=== PATIENT | male | born 1940 | race Caucasian/White ===

== ENCOUNTER 2017-09-18 08:26 | Emergency (ER) | payer OTHER ==
[~2017-09-18] VITALS: Ht 172.7 cm; Wt 70.5 kg
[2017-09-18 08:34] VITALS: BP 116/65; PULSE 87; RESP 16; TEMP 98.2; O2SAT 98
[2017-09-18] MEDS ORDERED: LIDOCAINE 1%/EPINEPHrine 1:100,000 SOLN 20 ML VIAL INFIL ONE (08:45)
[2017-09-18] MEDS ORDERED: WARF-58 PO (08:46)
[2017-09-18] MEDS ORDERED: AMLO10TA2 PO (08:46)
[2017-09-18] MEDS ORDERED: OMEP20TA93 PO (08:46)
[2017-09-18] MEDS ORDERED: CLINPOW P-ARTICULR (08:46)
[2017-09-18] MEDS ORDERED: LISI10TA3 PO (08:46)
--- NOTE | 2017-09-18 09:25 | PD ---
HPI Chief Complaint: Skin Problem Time Seen by Provider: 08:38 Travel History International Travel<30 days: No Contact w/Intl Traveler<30days: No Traveled to known affect area: No History of Present Illness HPI This 77-year-old male is complaining of a swollen area on his right cheek. This is been present for several days. He went to urgent care and was put on clindamycin. The area is swollen and tender. He has history of a prosthetic aortic valve and is on Coumadin. He is not aware of fevers. Believes it started as an ingrown hair. PFSH Past Medical History Hx Anticoagulant Therapy: Yes (COUMADIN) Cardiac Catheterization: Yes Coronary Artery Disease: Yes GERD: Yes Hypertension: Yes Influenza Vaccination: Yes Past Surgical History Valve Replacement: Yes Social History Alcohol Use: No Tobacco Use: No Substance Use: No Allergies-Medications (Allergen,Severity, Reaction): Coded Allergies: No Known Allergies (Verified Allergy, Unknown, 09/18/17) Reported Meds & Prescriptions Reported Meds & Active Scripts Active Reported Omeprazole 20 Mg Tab 20 Mg PO DAILY Lisinopril 10 Mg Tab 10 Mg PO DAILY Amlodipine (Amlodipine Besylate) 10 Mg Tab 10 Mg PO DAILY Warfarin 3 Mg Tab 3 Mg PO DAILY Clindamycin HCl (Bulk) 1 Powd 300 Mg P-ARTICULR BID Review of Systems General / Constitutional: No: Fever, Chills Eyes: No: Diploplia HENT: No: Headaches, Vertigo Cardiovascular: No: Chest Pain or Discomfort Gastrointestinal: No: Nausea, Vomiting Genitourinary: No: Urgency Musculoskeletal: No: Myalgias Skin: Positive Rash, Positive Lumps Psychiatric: No: Anxiety Endocrine: No: Cold Intolerance Hematologic/Lymphatic: Positive: Easy Bruising Physical Exam Narrative GENERAL: Well-developed male SKIN: Focused skin assessment warm/dry. HEAD: Atraumatic. Normocephalic. EYES: Pupils equal and round. No scleral icterus. No injection or drainage. Swelling and tenderness of the right cheek. It is fairly tense, approximately 1 x 2 cm in size ENT: No nasal bleeding or discharge. Mucous membranes pink and moist. NECK: Trachea midline. No JVD. CARDIOVASCULAR: Regular rate and rhythm. No murmur appreciated. RESPIRATORY: No accessory muscle use. Clear to auscultation. Breath sounds equal bilaterally. GASTROINTESTINAL: Abdomen soft, non-tender, nondistended. Hepatic and splenic margins not palpable. MUSCULOSKELETAL: No obvious deformities. No clubbing. No cyanosis. No edema. NEUROLOGICAL: Awake and alert. No obvious cranial nerve deficits. Motor grossly within normal limits. Normal speech. PSYCHIATRIC: Appropriate mood and affect; insight and judgment normal. Data Data Last Documented VS Vital Signs Date Time Temp Pulse Resp B/P (MAP) Pulse Ox O2 Delivery O2 Flow Rate FiO2 09/18/17 08:34 98.2 87 16 116/65 (82) 98 Orders Orders Lidocai-Epi 1%-1:100,000 Inj (Xylocaine- (09/18/17 08:45) MDM Medical Decision Making Medical Screen Exam Complete: Yes Emergency Medical Condition: Yes Medical Record Reviewed: Yes Differential Diagnosis Differential includes abscess, sebaceous cyst, Narrative Course History is consistent with abscess. Verbal consent was obtained and the area was anesthetized. An incision was made over the area of tenseness and purulent material was obtained. Much as possible was expressed. Loculations are broken up with forceps. Approximately 6 cm of quarter inch packing were inserted. Patient tolerated the procedure well Procedures Procedure Narrative After verbal consent the area was anesthetized with 1% lidocaine with adrenaline. An incision was made and pus was expressed. Loculations were broken up with a forceps. 6 cm of quarter inch packing was inserted patient tolerated the procedure well Diagnosis Primary Impression: Abscess of cheek Additional Instructions: Continue Cleocin and warm compresses, remove packing in 2 days or return for recheck Disposition: 01 DISCHARGE HOME Condition: Stable Morris Seymour MD Sep 18, 2017 09:25
== END 2017-09-18 09:32 | disposition home or self-care (01) ==
LOC: PHED 08:26
DX: L02.01 Cutaneous abscess of face (principal); I25.10 Atherosclerotic heart disease of native coronary artery without angina pectoris; I10 Essential (primary) hypertension; K21.9 Gastro-esophageal reflux disease without esophagitis; Z79.01 Long term (current) use of anticoagulants
CPT/HCPCS: 10061